=== PATIENT | female | born 1995 | race Hispanic/Latino ===

== ENCOUNTER 2019-03-15 08:48 | Inpatient (IN) ==
--- NOTE | 2019-03-15 08:01 | PROVIDER DOCUMENTATION ---
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 Pt is north korean speaking and a telephone printing equipment mechanic apprentice was used. Per pt she is . Pt states that she is 9 months and has not had any OB care so far. She says she is marc every 5 minutes and has not lost any fluid and denies any other symptoms. Per pt her first was uneventful and she delivered vaginally at term. Does patient report she is ?: Yes Severity in ED: reports: mild Onset/Duration: reports: unsure Timing: reports: still present Vaginal Symptoms: reports: no symptoms. denies: abnormal bleeding, discharge, passing clots/tissue Vaginal Bleeding Amount: None Urinary Symptoms: denies: no symptoms Related Symptoms: reports: uterine contractions, pelvic pain. denies: vaginal fluid leakage, vaginal bleeding, abdominal pain Leakage of Fluid: none Associated Symptoms: reports: back/neck pain. denies: chest pain, constipation, diaphoresis, diarrhea, fever/chills, nausea, vomiting Similar Symptoms Previously?: Yes Recently seen or treated by another doctor?: No - LMP/ History Menstrual Status: currently Review of Systems - Adult - REVIEW OF SYSTEMS - ADULT Constitutional: denies: no symptoms reported Eyes: denies: no symptoms reported Ears, Nose, Mouth & Throat: denies: no symptoms reported Cardiovascular: denies: no symptoms reported Respiratory: denies: no symptoms reported Gastrointestinal: denies: no symptoms reported Genitourinary: reports: see HPI Musculoskeletal: denies: no symptoms reported Integumentary: denies: no symptoms reported Neurological: denies: no symptoms reported Psychiatric: denies: no symptoms reported Endocrine: denies: no symptoms reported Hematologic/Lymphatic: denies: no symptoms reported Allergic/Immunologic: denies: no symptoms reported Past History - Adult - PAST MEDICAL HISTORY-ADULT Review of Records: reports: Nursing Assessment Review, Medications Reviewed, Social history reviewed & non-contributory. Physical Exam-General - PHYSICAL EXAM-ADULT Initial Vital Signs Reviewed: Yes - CONSTITUTIONAL General Appearance: appears well, alert, no apparent distress - EYES Eyes: PERRL/EOMI - HEAD, EARS, NOSE, MOUTH & THROAT HENMT: normocephalic/atraumatic, moist mucous membranes, normal ENT inspection - NECK Neck: supple - RESPIRATORY Respiratory: lungs clear, normal breath sounds, no respiratory distress, no accessory muscle use - CARDIOVASCULAR Cardiovascular: normal peripheral pulses, regular rate, rhythm, no edema, no murmur - GASTROINTESTINAL (ABDOMEN) Abdominal Exam: non tender, soft, other (Gravid uterus) - MUSCULOSKELETAL Back Exam: no CVA tenderness, no vertebral tenderness Extremity: normal gait, no pedal edema Peripheral Pulses: radial (R): 2+, radial (L): 2+ - SKIN Integumentary: normal color, warm/dry - NEUROLOGIC Neurologic: grossly normal, no motor/sensory deficits - PSYCHIATRIC Psych/Mental Status: normal mood/affect, normal thought content, normal thought process, oriented x 3 Progress - PLAN OF CARE/RESULTS Progress/Plan/Lab Results: Vital Signs - 8 hr 03/15/19 07:28 Temperature 98.7 F Pulse Rate 64 Respiratory Rate 18 Blood Pressure 149/90 O2 Sat by Pulse Oximetry 99 L&D at [facility] [place]. Will transfer the pt Departure - Departure Date of Disposition Decision: 03/15/19 Time of Disposition Decision: 08:06 DIAGNOSIS: Labor without complication Disposition: ADMITTED INPATIENT 09 Certified Medical Emergency: Emergent Condition: Good Referrals and Follow-Ups: None,PCP [Primary Care Provider] - - Critical Care Note This patient required my direct & personal management of CC.: No Attestation - Physician/ LENNY Attestation Patient care was provided by Advanced Practice Provider:: No The physician spent face to face time with patient:: Yes Advanced Practice Provider documentation review:: Supervising physician onsite and consulted in the evaluation and care of this patient. The physician did have a face to face encounter with the patient.
[2019-03-15] MEDS ORDERED: ZOFRAN IV PRN (09:14)
[2019-03-15] MEDS ORDERED: PEPCID IV PRN (09:14)
[2019-03-15] MEDS ORDERED: LR 500 ML IV ONE (09:14)
[2019-03-15] MEDS ORDERED: PEPCID PO ONE (09:14)
[2019-03-15] MEDS ORDERED: PEPCID PO PRN (09:14)
[2019-03-15] MEDS ORDERED: KEFZOL 1 GM/D5W 1 GM/50 ML IVPB IV PRN (09:14)
[2019-03-15] MEDS ORDERED: STADOL IV PRN (09:14)
[2019-03-15] MEDS ORDERED: TYLENOL PO PRN (09:14)
[2019-03-15] MEDS ORDERED: REGLAN PO ONE (09:14)
[2019-03-15] MEDS ORDERED: LR 1,000 ML IV SCH (09:15)
[2019-03-15] MEDS ORDERED: SODIUM CHLORIDE 0.9% INJ SCH (09:15)
[2019-03-15] MEDS ORDERED: PITOCIN 30 UNITS/NS 30 UNIT/500 ML IV.SOLN IV SCH ×2 (09:15→11:45)
[2019-03-15] MEDS ORDERED: XYLOCAINE-MPF 1% INJ ONE (09:56)
[2019-03-15] MEDS ORDERED: MINERAL OIL PO ONE (09:56)
[2019-03-15 10:05] LABS: BASO# 0.03 X1000 (0.0-0.2); BASO% 0.4 % (0.0-0.8); EOS# 0.08 X1000 (0.0-0.7); EOS% 1.1 % (0.0-10.0); LYMPH# 2.08 X1000 (1.2-3.4); LYMPH% 28.8 % (20.5-51.1); MCH 28.2 PG (27-31); MCHC 32.4 g/dL (33-37); MCV 87.2 FL (81-99); MONO% 6.9 % (1.7-9.3); MPV 13.1 FL (7.4-10.4); NEUT# 4.53 X1000 (1.4-6.5); NEUT% 62.8 % (42.2-75.2); PLT 167 X1000 (130-400); RDW 14.3 % (11.5-14.5); WBC 7.22 X1000 (4.8-10.8)
--- NOTE | 2019-03-15 10:26 | HISTORY AND PHYSICAL ---
HISTORY OF PRESENT ILLNESS: Mrs. Will is a 23-year-old, G2, P 1-0-0-1, at approximately 39 weeks and 4 days based off last menstrual period of 05/25/2018, who presents to Labor and Delivery in active labor. The patient reports good movement, regular contractions every 2 minutes. Denies leakage of fluid or vaginal bleeding. PAST MEDICAL HISTORY: No care. MEDICATIONS: vitamins. ALLERGIES: No known drug allergies. SURGERIES: None. PRIOR HOSPITALIZATIONS: Daughter's . SOCIAL HISTORY: Denies tobacco, alcohol, or drug use. 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 Menarche age 15. OBSTETRICAL HISTORY: G2, P 1-0-0-1. One prior full-term vaginal delivery. No complications. FAMILY HISTORY: Noncontributory. PHYSICAL EXAMINATION: VITAL SIGNS: Temperature 98.7 degrees Fahrenheit, pulse rate 64, respiratory rate 18, blood pressure 149/90, repeat blood pressure 109/70, O2 saturations 99% on room air. Weight 104 pounds, height 4 feet 7 inches, BMI 24.2 kg/m2. GENERAL: No acute distress. Alert, awake, oriented x3. CARDIOVASCULAR: Regular rate and rhythm. Positive S1, S2. RESPIRATORY: Clear to auscultation bilaterally. Negative rhonchi, rales, or wheezing. ABDOMEN: Gravid, nontender to palpation. PELVIC: 7 cm dilated. Electronic monitor and category 1 tracing, contractions occurring every 2 to 3 minutes. ASSESSMENT: Mrs. Will is a 23-year-old G2, P 1-0-0-1, at approximately 39 weeks and 4 days based off last menstrual period, who presents to Labor and Delivery in active labor. No care. PLAN: 1. Admit to Labor and delivery. Obtain routine labor labs. 2. Continuous electronic monitoring. 3. IV ampicillin antibiotics for GBS prophylaxis. 4. IV versus and/or epidural pain management p.r.n. Estimated weight 6.5 pounds. 5. Anticipate vaginal delivery.
[2019-03-15] MEDS ORDERED: PITOCIN 20 UNITS/NS 20 UNITS/1,000 ML IV.SOLN ONE (11:07)
[2019-03-15] MEDS ORDERED: HYDROXYZINE IM PRN (11:43)
[2019-03-15] MEDS ORDERED: M-M-R II VACCINE SUBQ ONE (11:43)
[2019-03-15] MEDS ORDERED: PERI MEDS (DERMOPLAST/NUPERCAINAL/TUCKS) MISC PRN (11:43)
[2019-03-15] MEDS ORDERED: BOOSTRIX VACCINE IM ONE (11:43)
[2019-03-15] MEDS ORDERED: BENADRYL IV PRN (11:43)
[2019-03-15] MEDS ORDERED: CYTOTEC PO PRN (11:43)
[2019-03-15] MEDS ORDERED: BENADRYL PO PRN (11:43)
[2019-03-15] MEDS ORDERED: ATARAX PO PRN (11:43)
[2019-03-15] MEDS ORDERED: PITOCIN IM PRN (11:43)
[2019-03-15] MEDS ORDERED: AMBIEN PO PRN (11:43)
[2019-03-15] MEDS ORDERED: PITOCIN 20 UNITS/NS 20 UNITS/1,000 ML IV.SOLN INJ SCH (11:45)
[2019-03-15 11:51] LABS: RUBELLA SCREEN NON IMMUNE (IMMUNE)
[2019-03-15 12:07] LABS: RAPID HIV PRESUMPTIVE NEGATIVE
[2019-03-15] MEDS: MOTRIN PO PRN (12:37)
[2019-03-15 19:40] LABS: URINE SOURCE VOIDED
[2019-03-15 19:47] LABS: BILIRUBIN URINE NEGATIVE (NEGATIVE); CLARITY SLIGHTLY CLOUDY (CLEAR); GLUCOSE URINE NEGATIVE (NEGATIVE); KETONE URINE NEGATIVE (NEGATIVE)
[2019-03-15 19:48] LABS: BLOOD URINE LARGE (NEGATIVE); COLOR YELLOW; LEUKOCYTES URINE NEGATIVE (NEGATIVE); NITRITE URINE NEGATIVE (NEGATIVE); PH URINE 6.5; PROTEIN URINE NEGATIVE (NEGATIVE); UROBILINOGEN URINE 0.2 EU/dL (0.2-1.0)
[2019-03-15 19:57] LABS: UR AMPHETAMINES QUAL NONE DETECTED (NONE DETECT); UR BARBITUATES QUAL NONE DETECTED (NONE DETECT); UR BENZODIAZEPIN QUAL NONE DETECTED (NONE DETECT); UR CANNABINOIDS QUAL NONE DETECTED (NONE DETECT); UR COCAINE QUAL NONE DETECTED (NONE DETECT); UR METHADONE QUAL NONE DETECTED (NONE DETECT); UR OPIATES QUAL NONE DETECTED (NONE DETECT); UR OXYCODONE QUAL NONE DETECTED (NONE DETECT); UR PCP QUAL NONE DETECTED (NONE DETECT)
--- NOTE | 2019-03-15 21:15 | OPERATIVE NOTE ---
PROCEDURE DATE: 03/15/2019 PROCEDURE PERFORMED: Spontaneous vaginal delivery. SURGEON: Dr. Travis Tapia. RUMPER: None. DESCRIPTION OF PROCEDURE: The patient delivered a viable male weighing 7 pounds 10 ounces with Apgars of 9 and 9 at 1 and 5 minutes respectively. The vertex was delivered spontaneously over intact perineum. No nuchal cord was identified. The anterior shoulders were delivered atraumatically by maternal expulsive forces and the assistance of downward traction. The posterior shoulder was delivered with maternal expulsive forces and upward traction. The remainder of the fetus delivered spontaneously. The was placed on the abdomen where it was assessed by waiting box stamper staff then cord was cut and clamped. Cord blood was obtained for blood gas assessment. To enhance uterine contractions IV oxytocin was administered. The cervix, vagina and perineum were inspected for lacerations. No lacerations were noted. ESTIMATED BLOOD LOSS: 200 mL.
[2019-03-16] MEDS: MOTRIN PO PRN ×3 (05:07→20:51)
[2019-03-16] MEDS: PERICOLACE PO SCH ×2 (05:17→20:51)
[2019-03-16 05:33] LABS: BASO# 0.02 X1000 (0.0-0.2); BASO% 0.2 % (0.0-0.8); EOS# 0.11 X1000 (0.0-0.7); EOS% 1.2 % (0.0-10.0); HEMATOCRIT 30.7 % (37.0-47.0); HEMOGLOBIN 9.8 g/dL (12.0-16.0); LYMPH# 2.11 X1000 (1.2-3.4); LYMPH% 22.4 % (20.5-51.1); MCH 27.8 PG (27-31); MCHC 31.9 g/dL (33-37); MONO% 6.4 % (1.7-9.3); MPV 12.9 FL (7.4-10.4); NEUT# 6.56 X1000 (1.4-6.5); NEUT% 69.8 % (42.2-75.2); PLT 147 X1000 (130-400); RBC 3.53 XMIL (4.2-5.4); RDW 14.4 % (11.5-14.5)
[2019-03-16 08:18] LABS: HEPATITIS B SURFACE ANTIGEN SEE COMMENTS
[2019-03-16 11:09] LABS: HIV ANTIBODY SCREEN SEE COMMENTS
[2019-03-16] MEDS: FERROUS SULFATE PO SCH (13:03)
[2019-03-17 00:44] VITALS: BP 100/53
[2019-03-17] MEDS ORDERED: FLU VACCINE IM ONE (07:45)
[2019-03-17] MEDS: MOTRIN PO PRN (07:47)
--- NOTE | 2019-03-17 08:52 | OB/GYN PROGRESS NOTE ---
Progress Note OB - . Patient Problems: Current Active Problems Problem Status Onset Labor without complication Acute OB Progress Note: Vital Signs - 24 hr 03/16/19 12:00 03/16/19 20:00 03/17/19 00:00 Temperature 97.8 F 97.9 F 97.6 F Pulse Rate 70 64 71 Respiratory Rate 18 18 18 Blood Pressure 101/57 113/73 100/53 O2 Sat by Pulse Oximetry 97 98 100 Laboratory Results - last 24 hr 03/15/19 12:07 HIV 1&2 Antibody Screen SEE COMMENTS PPD#2 Uncomplicated. Speaks limited Georgian. Decreased libido. No pain. No leg pain. No SOB, chest pain. Ready to go home. VVS AF Gen - Pt in no apprent distress, A&O x 3 ABD - soft, NT, ND, FF Extreme - No CCE A/P, PPD#2 - D/c home, F/u in 6 weeks.
[2019-03-17] MEDS: FERROUS SULFATE PO SCH (09:54)
== END 2019-03-17 12:10 | disposition home or self-care (01) | DRG 807 ==
LOC: OPLD 08:48 → EDSTATUS 08:48 → LD 08:50
PROVIDERS: ADMIT Obstetrics & Gynecology; ATTEND Obstetrics & Gynecology